=== PATIENT | female | born 1990 | race Caucasian/White ===

== ENCOUNTER 2017-11-05 11:18 | Emergency (ER) | payer OTHER ==
[2017-11-05 11:39] VITALS: BMI 23.6
[2017-11-05] MEDS ORDERED: SODIUM CHLORIDE 0.9% 1000 ML INFUS.BAG IV ONE (11:58)
[2017-11-05] MEDS ORDERED: ONDANSETRON 4 MG/2 ML VIAL IVPUSH ONE ×2 (11:58→12:50)
[2017-11-05] MEDS ORDERED: ONDANSETRON 4 MG/2 ML VIAL ONE ×2 (12:02→12:08)
[2017-11-05 12:16] LABS: BASO % 0.3 % (0-2.0); EOS % 0.2 % (0-4.5); HEMATOCRIT 39.1 % (32.4-45.2); HEMOGLOBIN 13.5 GM/dL (10.7-15.3); LYMPH % 8.8 % (8-40); MCH 33.3 pg (25.7-33.7); MCHC 34.7 g/dl (32.0-36.0); MEAN CELL VOLUME 95.9 fl (80-96); MONO % 2.6 % (3.8-10.2); NEUT % 88.1 % (42.8-82.8); PLATELET COUNT 244 K/MM3 (134-434); RBC 4.07 M/mm3 (3.60-5.2); RDW 12.9 % (11.6-15.6); WHITE BLOOD COUNT 10.2 K/mm3 (4.0-10.0)
--- NOTE | 2017-11-05 12:43 | PDOC ---
History of Present Illness - General Chief Complaint: Nausea/Vomiting Stated Complaint: VOMITING/DIZZINES Time Seen by Provider: 11/05/17 12:00 - History of Present Illness Initial Comments: 11/05/17 12:35 27 yo F w a hx of cholecystectomy is here with Nausea, vomiting and 2 syncopal episodes. She was sitting in the waiting rom and syncopized. She reports being fully well yesterday when she went to sleep. She then woke up at 2 in the morning and started vomiting multiple times. The vomitus was NBNB. She says she was lightheaded and her heart started racing before she passed out. She was sitting down while she passed out and did not fall down. Food she ate over the past 24 hours: Steak with mushroom sauce, mojito, ham and cheese sandwch, 2 ensures and 2 coffees. Her friend was with her yesterday and ate the same food but has no symptoms. She denies any recent fevers, chills, or infections. She has been spotting blood for the past month. She has a remote history of bacterial vaginosis. Past History - Past Medical History Allergies/Adverse Reactions: Allergies Allergy/AdvReac Type Severity Reaction Status Date / Time No Known Allergies Allergy Verified 11/05/17 11:34 Home Medications: Ambulatory Orders Ondansetron HCl [Zofran] 4 mg PO DAILY #20 tablet 11/05/17 COPD: No - Surgical History Cholecystectomy: Yes - Immunization History Immunization Up to Date: Yes - Suicide/Smoking/Psychosocial Hx Smoking History: Never smoked Number of Cigarettes Smoked Daily: 1 Information on smoking cessation initiated: No Hx Alcohol Use: No Drug/Substance Use Hx: Yes (marijuana) Substance Use Type: Marijuana Review of Systems - Review of Systems Comments:: 11/05/17 14:31 CONSTITUTIONAL: Positive: malaise, loss of appetite Absent: fever, chills, diaphoresis, generalized weakness, HEENT: Absent: rhinorrhea, nasal congestion, throat pain, throat swelling, difficulty swallowing, mouth swelling, ear pain, eye pain, visual Changes CARDIOVASCULAR: Positive: Lightheadedness, syncope Absent: chest pain palpitations, irregular heart rate, peripheral edema RESPIRATORY: Absent: cough, shortness of breath, dyspnea with exertion, orthopnea, wheezing, stridor, hemoptysis GASTROINTESTINAL: Positive: nausea, vomiting, Absent: abdominal pain, abdominal distension, diarrhea, constipation, melena, hematochezia GENITOURINARY: Positive: Hematuria Absent: dysuria, frequency, urgency, hesitancy, flank pain, genital pain MUSCULOSKELETAL: Absent: myalgia, arthralgia, joint swelling SKIN: Absent: rash, itching, pallor HEMATOLOGIC/IMMUNOLOGIC: Absent: easy bleeding, easy bruising, lymphadenopathy, frequent infections ENDOCRINE: Absent: unexplained weight gain, unexplained weight loss, heat intolerance, cold intolerance NEUROLOGIC: Absent: headache, focal weakness or paresthesias, dizziness, unsteady gait, seizure, mental status changes, bladder or bowel incontinence PSYCHIATRIC: Absent: anxiety, depression, suicidal or homicidal ideation, hallucinations. *Physical Exam - Vital Signs Last Vital Signs Temp Pulse Resp BP Pulse Ox 98.2 F 106 H 16 141/85 100 11/05/17 11:34 11/05/17 11:34 11/05/17 11:34 11/05/17 11:34 11/05/17 11:34 - Physical Exam Comments: 11/05/17 14:33 GENERAL: Well developed, well nourished. Awake and alert. No acute distress. HEENT: Dry mucous membranes Normocephalic, atraumatic. PERRLA, EOMI. No conjunctival pallor. Sclera are non- icteric. Oropharynx is clear. NECK: Supple. Full ROM. No JVD. No thyromegaly. No lymphadenopathy. CARDIOVASCULAR: Regular rate and rhythm. No murmurs, rubs, or gallops. Distal pulses are 2+ and symmetric. PULMONARY: No evidence of respiratory distress. Lungs clear to auscultation bilaterally. No wheezing, rales or rhonchi. ABDOMINAL: There is RUQ TTP. Otherwise the abdomen is soft. Non-tender. Non-distended. No rebound or guarding. No organomegaly. Normoactive bowel sounds. MUSCULOSKELETAL +L sided CVA tenderness. Normal range of motion at all joints. No bony deformities or tenderness. EXTREMITIES: No cyanosis. No clubbing. No edema. No calf tenderness. SKIN: Warm and dry. Normal capillary refill. No rashes. No jaundice. NEUROLOGICAL: Alert, awake, appropriate. Cranial nerves 2-12 grossly intact. Normal speech. Gait is normal without ataxia. PSYCHIATRIC: Cooperative. Good eye contact. Appropriate mood and affect. ED Treatment Course - LABORATORY CBC & Chemistry Diagram: 11/05/17 12:05 11/05/17 12:05 - ADDITIONAL ORDERS Additional order review: 11/05/17 12:05 RBC 4.07 MCV 95.9 MCHC 34.7 RDW 12.9 MPV 9.0 Neutrophils % 88.1 H Lymphocytes % 8.8 Monocytes % 2.6 L Eosinophils % 0.2 Basophils % 0.3 - RADIOLOGY Radiology Studies Ordered: Category Date Time Status ABDOMEN US -LIMITED [US] Stat Ultrasound 11/05/17 12:25 Ordered KIDNEY / RENAL US [US] Stat Ultrasound 11/05/17 12:25 Ordered - Medications Given in the ED: ED Medications Discontinued Medications Generic Name Dose Route Start Last Admin Trade Name Freq PRN Reason Stop Dose Admin Ondansetron HCl 4 mg 11/05/17 11:58 11/05/17 12:07 Zofran Injection IVPUSH 11/05/17 11:59 4 mg ONCE ONE Administration Sodium Chloride 2,000 ml 11/05/17 11:58 11/05/17 12:06 Normal Saline - IV 11/05/17 11:59 2,000 ml ONCE ONE Administration Medical Decision Making - Medical Decision Making 11/05/17 12:40 27 yo F w a hx of cholecystectomy here after Nausea, vomiting and syncopal episodes. +L CVA tenderness +RUQ pain + Hematuria for past month DD: food poisening, gastroenteritis, pancreatitis, vasovagal syncope, arrhythmia , gallbladder disease, uti/pylo, kidney stone Plan: Labs, urine, ekg, fluids, US, zofran, re-assess. USm labs, urine and ekg unremarkable No evidence of lont QT, brugada, or wpw on ekg. This is likely a vasovagal syncope episode. DCing patient with advice about vasovagal syncope, Gynecological FU, and pcp referal. 11/05/17 16:01 *DC/Admit/Observation/Transfer Diagnosis at time of Disposition: Vasovagal syncope, Hematuria - Discharge Dispostion Disposition: HOME Condition at time of disposition: Stable Decision to Admit order: No - Prescriptions Prescriptions: Ondansetron HCl [Zofran] 4 mg PO DAILY #20 tablet - Referrals Referrals: Crista Ly MD [Staff Physician] - [facility] [place] [Provider Group] - Patient Instructions Printed Discharge Instructions: DI for Syncope in Adults (Fainting), Fainting, DI for Syncope in Children (Fainting) Additional Instructions: We believe your syncopal episode today was a result of vasovagal syncope. Please make sure to follow up with your primary are doctor to make sure you are getting better and you do not pass out again in the next 2 weeks. Please also schedule an appointment with a chair spring assembler to help figure out why you have been spotting for the past month. Please make sure to go warehouse picker the medication we are sending to your [facility] pharmacy. Come back to the ER if you develop really bad pain, pass out again, start to have a bad fever, or have any other concerns. Print Language: ITALIAN - Post Discharge Activity
[2017-11-05 12:53] LABS: ALBUMIN 4.5 g/dl (3.4-5.0); ANION GAP 8 (8-16); BLOOD UREA NITROGEN 11 mg/dL (7-18); CALCIUM 9.3 mg/dL (8.5-10.1); CHLORIDE 107 mmol/L (98-107); CO2 26 mmol/L (21-32); CREATININE 0.7 mg/dL (0.55-1.02); GLUCOSE,RANDOM 106 mg/dL (74-106); POTASSIUM 3.7 mmol/L (3.5-5.1); SGOT/AST 16 U/L (15-37); SGPT/ALT 32 U/L (12-78); SODIUM 141 mmol/L (136-145)
[2017-11-05 12:57] LABS: ALK PHOS 68 U/L (45-117); BILIRUBIN,TOTAL 0.3 mg/dL (0.2-1.0); TOT PROT 7.8 g/dl (6.4-8.2)
[2017-11-05 13:01] LABS: URINE APPEARANCE CLEAR; URINE BILIRUBIN NEGATIVE (<2.0 mg/dL); URINE COLOR YELLOW; URINE GLUCOSE (UA) NEGATIVE (NEGATIVE); URINE KETONE 1+ (NEGATIVE); URINE LEUK ESTERASE NEGATIVE (NEGATIVE); URINE NITRITE NEGATIVE (NEGATIVE); URINE UROBILINOGEN NEGATIVE mg/dL (0.2-1.0)
[2017-11-05 13:02] LABS: URINE PROTEIN 2+ (NEGATIVE)
[2017-11-05 13:03] LABS: EPI CELLS RARE /HPF (FEW); URINE MUCUS RARE
[2017-11-05] MEDS ORDERED: SODIUM CHLORIDE 0.9% 500 ML INFUS.BAG IV ONE (13:21)
[2017-11-05 14:24] LABS: LIPASE 55 U/L (73-393)
--- NOTE | 2017-11-05 15:40 | PDOC ---
Attending Attestation - HPI HPI: 11/05/17 15:43 The patient is a 27 year old female with a significant PMH of cholecystectomy presenting with nausea, vomiting, and 2 syncopal episodes today. Patient reports multiple episodes of nonbloody, nonbilious vomiting since 2AM this morning. Patient was sitting in the waiting room when she had the second syncopal episode. Patient denies falling during either of the syncopal episodes. Patient denies eating anything unusual yesterday and her friend ate the same thing but did not have any symptoms. She reports spotting blood for the past month. She also has a remote history of bacterial vaginosis. The patient denies chest pain, shortness of breath, headache and dizziness. Denies fever, chills, nausea, vomit, diarrhea and constipation. Denies dysuria, frequency, urgency and hematuria. Allergies: NKA Past surgical history: cholecystectomy Social history: No reported alcohol, drug, or cigarette use. - Physicial Exam PE: 11/05/17 15:43 Vitals: Triage Vital signs reviewed General Appearance: no acute distress, well nourished well developed, Head: Atraumatic, normocephalic Neck: Supple;No Nuchal rigidity Cardiac: Regular rate and rhythm, no murmurs, no rubs, no gallops, Lungs: Clear to auscultation bilateral, good air movement bilaterally, Abdomen: Soft, nondistended, normal bowel sounds, nontender to palpation Rectal: Exam deferred Extremities: Full range of motion to all extremities, no cyanosis, clubbing, or edema Skin: Warm and dry, no rashes or lesions, no petechiae Neuro: AOX3; Cranial Nerves 2-12 grossly intact, Strength intact to all extremities, Sensation intact to all extremities Psych: normal mood, normal affect <Lilian Flores - Last Filed: 11/05/17 15:43> - Resident Resident Name: Torres Ramsey - ED Attending Attestation I have performed the following: I have examined & evaluated the patient, The case was reviewed & discussed with the resident, I agree w/resident's findings & plan, Exceptions are as noted - Medical Decision Making 11/05/17 18:56 27 years old with multiple episodes of vomiting. No fever no white count 2 syncopal episodes while having intermittent epigastric discomfort. Syncopal episodes or in the context of nausea epigastric discomfort had classic prodrome of dizziness lightheadedness sweating In the ED patient received 2 L normal saline and Zofran She feels much better she is tolerating fluids her ED workup in the ED has been unremarkable. She is provided with a prescription for Zofran she was asked follow-up with her BUFFET MANAGER or primary care provider this week. Findings, need for follow-up and strict return instructions discussed with patient. 11/05/17 19:00 <Constantino Zamora - Last Filed: 11/05/17 19:01>
[2017-11-05 16:35] VITALS: BP 120/72; PULSE 62; TEMP 98.1
--- NOTE | 2017-11-06 22:11 | EKG ---
Test Reason : Blood Pressure : / mmHG Vent. Rate : 049 BPM Atrial Rate : 049 BPM P-R Int : 114 ms QRS Dur : 080 ms QT Int : 476 ms P-R-T Axes : 000 057 019 degrees QTc Int : 429 ms SINUS BRADYCARDIA OTHERWISE NORMAL ECG NO PREVIOUS ECGS AVAILABLE Confirmed by SILVESTRE FINN MD ([id number]) on 11/06/2017 10:10:50 PM Referred By: Confirmed By:SILVESTRE FINN MD
== END 2017-11-05 16:36 | disposition home or self-care (01) ==
LOC: JER 11:18
PROC: 3E033GC Introduction of Other Therapeutic Substance into Peripheral Vein, Percutaneous Approach (ICD-10-PCS; principal; 2017-11-05)
DX: R55 Syncope and collapse (principal); R31.9 Hematuria, unspecified
CPT/HCPCS: 36415; 76705-TC; 76775-TC; 76856-TC; 80053; 81003; 81015; 83690; 84443; 84702; 85025; 87086; 87186; 93005; 93010; 96374; 96376; 99283-25; J7030

== ENCOUNTER 2018-06-12 22:52 | Emergency (ER) | payer OTHER ==
[2018-06-12 22:56] VITALS: BP 112/61; PULSE 91; TEMP 97.8; BMI 21.2
--- NOTE | 2018-06-12 23:37 | PDOC ---
Attending Attestation - HPI HPI: 06/12/18 23:43 The patient is a 28 year old female, with no significant past medical history, who presents to the emergency department with, bumps to her vagina with associated dysuria. Patient notes she had similar bumps over the past few weeks. She endorses that her partner is currently at an ER and is being evaluated for herpes, prompting her arrival. She denies any abnormal vaginal discharge or abnormal vaginal bleeding. She denies recent fevers, chills, headache or dizziness. She denies recent nausea, vomit, diarrhea or constipation. She denies recent frequency, urgency or hematuria. She denies recent chest pain or shortness of breath. Allergies: NKDA Past surgical history: None reported. <Norris Jon - Last Filed: 06/12/18 23:43> - Resident Resident Name: Raghav Mcallister - ED Attending Attestation I have performed the following: I have examined & evaluated the patient, The case was reviewed & discussed with the resident, I agree w/resident's findings & plan, Exceptions are as noted - Physicial Exam PE: 06/13/18 00:55 Agree with exam as documented by resident - Medical Decision Making 06/13/18 00:56 Reports painful bump on external genitalia in context of new sexual partner with oral vesicular lesions de-roofed ulcer on exam consider herpes STI panel sent will send rx for valcyclovir <Eliceo Woo - Last Filed: 06/13/18 00:57> Attestations - Attestations 06/12/18 23:43 Documentation prepared by Norris Jon, acting as medical anthropologist for Eliceo Woo MD. <Norris Jon - Last Filed: 06/12/18 23:43>
[2018-06-12 23:51] LABS: PH,URINE 5.5 (5.0-8.0); URINE APPEARANCE CLEAR; URINE BILIRUBIN NEGATIVE (NEGATIVE); URINE COLOR YELLOW; URINE GLUCOSE (UA) NEGATIVE (NEGATIVE); URINE KETONE NEGATIVE (NEGATIVE); URINE LEUK ESTERASE NEGATIVE (NEGATIVE); URINE NITRITE NEGATIVE (NEGATIVE); URINE PROTEIN NEGATIVE (NEGATIVE); URINE UROBILINOGEN 0.2 mg/dL (0.2-1.0)
--- NOTE | 2018-06-13 00:19 | PDOC ---
History of Present Illness - General Chief Complaint: Nausea/Vomiting Stated Complaint: CHILLS/VOMITING Time Seen by Provider: 06/12/18 23:07 History Source: Patient Exam Limitations: No Limitations - History of Present Illness Initial Comments: 06/13/18 00:15 Patient is a 28F with history of cholecystectomy here today complaining of "painful bumps" around her vagina. She states that she is sexually active and has a new partner who has a sore on her mouth. Also endorses pain with urination. Denies abdominal pain, vaginal pain, changes to vaginal discharge. Denies fevers, endorses chills, denies nausea and vomiting. Past History - Past Medical History Allergies/Adverse Reactions: Allergies Allergy/AdvReac Type Severity Reaction Status Date / Time No Known Allergies Allergy Verified 06/12/18 22:56 Home Medications: Ambulatory Orders Ondansetron HCl [Zofran] 4 mg PO DAILY #20 tablet 11/05/17 Valacyclovir HCl [Valtrex -] 1,000 mg PO TID #30 tablet 06/13/18 COPD: No - Surgical History Cholecystectomy: Yes - Immunization History Immunization Up to Date: Yes - Suicide/Smoking/Psychosocial Hx Smoking History: Unknown if ever smoked Number of Cigarettes Smoked Daily: 1 Hx Alcohol Use: No Drug/Substance Use Hx: Yes (marijuana) Substance Use Type: Marijuana Review of Systems - Review of Systems Able to Perform ROS?: Yes Comments:: 06/13/18 00:16 GENERAL/CONSTITUTIONAL: No fever or chills. No weakness. HEAD, EYES, EARS, NOSE AND THROAT: No change in vision. No sore throat. CARDIOVASCULAR: No chest pain or shortness of breath RESPIRATORY: No cough, wheezing, or hemoptysis. GASTROINTESTINAL: No nausea, vomiting, diarrhea or constipation. GENITOURINARY: + dysuria, MUSCULOSKELETAL: No joint or muscle swelling or pain. No neck or back pain. SKIN: No rash NEUROLOGIC: No headache, vertigo, loss of consciousness, or change in strength/ sensation. *Physical Exam - Vital Signs Last Vital Signs Temp Pulse Resp BP Pulse Ox 97.8 F 91 H 18 112/61 98 06/12/18 22:53 06/12/18 22:53 06/12/18 22:53 06/12/18 22:53 06/12/18 22:53 - Physical Exam Comments: 06/13/18 00:17 GENERAL: Awake, alert, and fully oriented, in no acute distress PELVIC: Painful ulceration superior at 1 oclock on inner aspect of labia, no cmt , no adnexal masses or tenderness, normal discharge. HEAD: No signs of trauma, normocephalic, atraumatic EYES: PERRLA, EOMI, sclera anicteric, conjunctiva clear ENT: Auricles normal inspection, hearing grossly normal, nares patent, oropharynx clear without exudates. Moist mucosa NECK: Normal ROM, supple, no lymphadenopathy, JVD, or masses LUNGS: No distress, speaks full sentences, clear to auscultation bilaterally HEART: Regular rate and rhythm, normal S1 and S2, no murmurs, rubs or gallops, peripheral pulses normal and equal bilaterally. ABDOMEN: Soft, nontender, normoactive bowel sounds. No guarding, no rebound. No masses EXTREMITIES: Normal inspection, Normal range of motion, no edema. No clubbing or cyanosis. NEUROLOGICAL: Cranial nerves II through XII grossly intact. Normal speech, normal gait, no focal sensorimotor deficits SKIN: Warm, Dry, normal turgor, no rashes or lesions noted. ED Treatment Course - ADDITIONAL ORDERS Additional order review: Laboratory Results 06/12/18 23:40 Urine Color Yellow Urine Appearance Clear Urine pH 5.5 D Ur Specific [place] 1.020 Urine Protein Negative Urine Glucose (UA) Negative Urine Ketones Negative Urine Blood Negative Urine Nitrite Negative Urine Bilirubin Negative Urine Urobilinogen 0.2 Ur Leukocyte Esterase Negative Medical Decision Making - Medical Decision Making 06/13/18 00:18 Patient is 28F here today with new onset herpes. Vitals normal and stable. Asking for STI screening, sent G/C, RPR, HIV. UA clear. Urine negative. Pending HIV. Valacyclovir sent to pharmacy. 06/13/18 00:20 HIV negative. *DC/Admit/Observation/Transfer Diagnosis at time of Disposition: Herpes - Discharge Dispostion Disposition: HOME Condition at time of disposition: Good Decision to Admit order: No - Prescriptions Prescriptions: Valacyclovir HCl [Valtrex -] 1,000 mg PO TID #30 tablet - Referrals Referrals: Brown Cardenas MD [Staff Physician] - - Patient Instructions Printed Discharge Instructions: DI for Genital Herpes Additional Instructions: Please follow up with an OBGYN physician. If you do not have one, one is listed below. Please return if you have any new, worsening or concerning symptoms, especially increasing pain and discharge. - Post Discharge Activity
== END 2018-06-13 00:24 | disposition home or self-care (01) ==
LOC: JER 22:52
DX: A60.04 Herpesviral vulvovaginitis (principal)
CPT/HCPCS: 36415; 81003; 84703; 86593; 87086; 87389; 87491; 87591; 99282-25

== ENCOUNTER 2018-07-21 10:57 | Emergency (ER) | payer OTHER ==
[2018-07-21 11:06] VITALS: BMI 20.3
[2018-07-21] MEDS ORDERED: SODIUM CHLORIDE 1,000 ML IV STA ×2 (11:16→14:04)
[2018-07-21] MEDS ORDERED: ONDANSETRON 4 MG/2 ML VIAL IVPUSH ONE (11:16)
[2018-07-21] MEDS ORDERED: ONDANSETRON 4 MG/2 ML VIAL ONE (11:36)
[2018-07-21 11:53] LABS: BASO % 0.3 % (0-2.0); EOS % 0.4 % (0-4.5); HEMATOCRIT 37.8 % (32.4-45.2); HEMOGLOBIN 12.6 GM/dL (10.7-15.3); LYMPH % 8.6 % (8-40); MCH 32.8 pg (25.7-33.7); MCHC 33.4 g/dl (32.0-36.0); MEAN CELL VOLUME 98.1 fl (80-96); MEAN PLT VOLUME 9.2 fl (7.5-11.1); MONO % 3.8 % (3.8-10.2); NEUT % 86.9 % (42.8-82.8); PLATELET COUNT 240 K/MM3 (134-434); RBC 3.85 M/mm3 (3.60-5.2); RDW 13.5 % (11.6-15.6); WHITE BLOOD COUNT 11.8 K/mm3 (4.0-10.0)
--- NOTE | 2018-07-21 11:55 | PDOC ---
History of Present Illness - General Chief Complaint: Nausea/Vomiting Stated Complaint: NAUSEA/VOMITING Time Seen by Provider: 07/21/18 11:15 History Source: Patient Exam Limitations: No Limitations - History of Present Illness Initial Comments: 07/21/18 12:31 28-year-old female presents the emergency room with complaints of nausea vomiting since 7 AM. Patient states went to a nearby your yesterday had lab work urine and it x-ray which were negative. Patient states was given something for the pain which she states is in her left upper flank area intermittently for the past few days. Patient denies fever, chills, chest pain, lower abdominal pain, urinary complaints, or bowel complaints. Timing/Duration: changing over time Severity: mild Associated Symptoms: reports: nausea/vomiting Past History - Travel Traveled outside of the country in the last 30 days: No Close contact w/someone who was outside of country & ill: No - Past Medical History Allergies/Adverse Reactions: Allergies Allergy/AdvReac Type Severity Reaction Status Date / Time No Known Allergies Allergy Verified 07/21/18 11:03 Home Medications: Ambulatory Orders Ondansetron HCl [Zofran] 4 mg PO DAILY #20 tablet 11/05/17 Valacyclovir HCl [Valtrex -] 1,000 mg PO TID #30 tablet 06/13/18 COPD: No - Surgical History Cholecystectomy: Yes - Immunization History Immunization Up to Date: Yes - Suicide/Smoking/Psychosocial Hx Smoking History: Current every day smoker Number of Cigarettes Smoked Daily: 10 Information on smoking cessation initiated: No Hx Alcohol Use: No Drug/Substance Use Hx: Yes (MARIJUANA) Substance Use Type: Marijuana Patient Lives Alone: No Review of Systems - Review of Systems Able to Perform ROS?: Yes Constitutional: Yes: Loss of Appetite HEENTM: No: Symptoms Reported Respiratory: No: Symptoms reported Cardiac (ROS): No: Symptoms Reported ABD/GI: Yes: Nausea, Poor Appetite, Vomiting. No: Poor Fluid Intake : Yes: Flank Pain (left) Musculoskeletal: No: Symptoms Reported Integumentary: No: Symptoms Reported Neurological: No: Symptoms reported Endocrine: No: Symptoms Reported *Physical Exam - Vital Signs Last Vital Signs Temp Pulse Resp BP Pulse Ox 98.1 F 104 H 16 135/99 98 07/21/18 11:03 07/21/18 11:03 07/21/18 11:03 07/21/18 11:03 07/21/18 11:03 - Physical Exam General Appearance: Yes: Nourished, Appropriately Dressed, Intoxicated (noted smell of marijuana and appears groggy). No: Apparent Distress HEENT: positive: EOMI, DAISY, TMs Normal Neck: positive: Supple Respiratory/Chest: positive: Lungs Clear, Normal Breath Sounds. negative: Chest Tender, Respiratory Distress, Accessory Muscle Use Cardiovascular: positive: Regular Rhythm, Tachycardia. negative: Murmur Gastrointestinal/Abdominal: positive: Normal Bowel Sounds, Soft. negative: Distended, Guarding, Tenderness Musculoskeletal: negative: CVA Tenderness Extremity: positive: Normal Capillary Refill. negative: Pedal Edema Integumentary: positive: Normal Color, Warm, Moist. negative: Rash Neurologic: positive: Motor Strength 5/5 (ambulatory) ED Treatment Course - LABORATORY CBC & Chemistry Diagram: 07/21/18 11:44 07/21/18 11:44 - Medications Given in the ED: ED Medications Discontinued Medications Generic Name Dose Route Start Last Admin Trade Name Panfiloq PRN Reason Stop Dose Admin Ondansetron HCl 4 mg 07/21/18 11:16 07/21/18 11:36 Zofran Injection IVPUSH 07/21/18 11:17 4 mg ONCE ONE Administration Medical Decision Making - Medical Decision Making 07/21/18 12:25 Chief complaint: Vomiting since 7 AM with left flank area pain intermittently without aggravating or alleviating factors Exam: Patient with nonreproducible abdominal pain. Slightly tachycardic appears groggy with a smell of marijuana noted Plan: Spoke to physician at [facility] and states had normal lab work including chest x-ray and d-dimer. He states for pain patient was sent home with Timyn I will order labs, urine drug toxicology IV fluids and antiemetics 07/21/18 14:04 Laboratory Tests 07/21/18 13:00 Urine Ketones 4+ H Urine Blood 1+ H Urine Nitrite Negative Urine Bilirubin Negative Ur Leukocyte Esterase Trace Urine WBC (Auto) 10 Urine Casts (Auto) 14 U Epithel Cells (Auto) 17.5 Urine Bacteria (Auto) 235.3 Urine HCG, Qual Negative Pt w/ cont nausea. reglan and 1 ltr of ivf ordered 07/21/18 15:32 Laboratory Tests 07/21/18 07/21/18 07/21/18 11:44 11:44 12:00 WBC 11.8 H Hgb 12.6 Hct 37.8 MCV 98.1 H Absolute Neuts (auto) 10.3 H Neutrophils % 86.9 H Sodium 139 Potassium 4.3 Chloride 108 H Carbon Dioxide 28 Anion Gap 3 L BUN 14 Creatinine 0.6 Creat Clearance w eGFR 119.04 POC Glucometer 99 Random Glucose 111 H Calcium 9.6 Magnesium 2.4 Total Bilirubin 0.4 AST 26 ALT 28 Alkaline Phosphatase 66 Total Protein 7.2 Albumin 4.2 Lipase 60 L Urine Ketones Urine Blood Urine Nitrite Urine Bilirubin Ur Leukocyte Esterase Urine WBC (Auto) Urine RBC (Auto) Urine HCG, Qual 07/21/18 13:00 WBC Hgb Hct MCV Absolute Neuts (auto) Neutrophils % Sodium Potassium Chloride Carbon Dioxide Anion Gap BUN Creatinine Creat Clearance w eGFR POC Glucometer Random Glucose Calcium Magnesium Total Bilirubin AST ALT Alkaline Phosphatase Total Protein Albumin Lipase Urine Ketones 4+ H Urine Blood 1+ H Urine Nitrite Negative Urine Bilirubin Negative Ur Leukocyte Esterase Trace Urine WBC (Auto) 10 Urine RBC (Auto) 6.5 Urine HCG, Qual Negative Patient ordered for second liter fluid. Patient will give another specimen for urine culture. Patient states feeling much better and will be discharged home with Reglan. Patient tolerated giovani crackers and ice chips *DC/Admit/Observation/Transfer Diagnosis at time of Disposition: Nausea & vomiting - Discharge Dispostion Disposition: HOME Condition at time of disposition: Improved - Referrals - Patient Instructions Printed Discharge Instructions: DI for Vomiting -- Adult, Ada Diet Additional Instructions: Follow-up bland diet for the next 48 hours and then advance as tolerated. Take Reglan as needed for nausea. - Post Discharge Activity
[2018-07-21 12:26] LABS: ALBUMIN 4.2 g/dl (3.4-5.0); ALK PHOS 66 U/L (45-117); ANION GAP 3 MMOL/L (8-16); BILIRUBIN,TOTAL 0.4 mg/dL (0.2-1); BLOOD UREA NITROGEN 14 mg/dL (7-18); CALCIUM 9.6 mg/dL (8.5-10.1); CHLORIDE 108 mmol/L (98-107); CO2 28 mmol/L (21-32); CREATININE 0.6 mg/dL (0.55-1.3); GLUCOSE,RANDOM 111 mg/dL (74-106); LIPASE 60 U/L (73-393); MAGNESIUM 2.4 mg/dL (1.8-2.4); POTASSIUM 4.3 mmol/L (3.5-5.1); SGOT/AST 26 U/L (15-37); SGPT/ALT 28 U/L (13-61); SODIUM 139 mmol/L (136-145); TOT PROT 7.2 g/dl (6.4-8.2)
[2018-07-21] MEDS ORDERED: METOCLOPRAMIDE HCL INJECTION 10 MG/2 ML VIAL IVPB ONE (13:23)
[2018-07-21] MEDS ORDERED: KETOROLAC TROMETHAMINE 30 MG/1 ML VIAL IVPUSH ONE (13:24)
[2018-07-21] MEDS ORDERED: METOCLOPRAMIDE HCL INJECTION 10 MG/2 ML VIAL ONE (13:39)
[2018-07-21] MEDS ORDERED: KETOROLAC TROMETHAMINE 30 MG/1 ML VIAL ONE (13:39)
[2018-07-21 13:41] LABS: HCG,QUALITATIVE URINE Negative
[2018-07-21 13:42] LABS: EPI CELLS 17.5 /HPF (0-5/HPF); URINE APPEARANCE CLOUDY; URINE BACTERIA 235.3 /hpf (NEGATIVE); URINE BILIRUBIN NEGATIVE (NEGATIVE); URINE CASTS 14 /lpf (0-8); URINE COLOR YELLOW; URINE GLUCOSE (UA) NEGATIVE (NEGATIVE); URINE KETONE 4+ (NEGATIVE); URINE LEUK ESTERASE TRACE (NEGATIVE); URINE NITRITE NEGATIVE (NEGATIVE); URINE PROTEIN NEGATIVE (NEGATIVE); URINE UROBILINOGEN 0.2 mg/dL (0.2-1.0); URINE WBC 10 /hpf (0-5)
[2018-07-21 14:31] VITALS: BP 130/79; PULSE 89; TEMP 98.7
[2018-07-21 15:17] LABS: URINE RBC 6.5 /hpf (0-4)
== END 2018-07-21 15:41 | disposition home or self-care (01) ==
LOC: JER 10:57
PROC: 3E0337Z Introduction of Electrolytic and Water Balance Substance into Peripheral Vein, Percutaneous Approach (ICD-10-PCS; principal; 2018-07-21)
PROC: 3E033GC Introduction of Other Therapeutic Substance into Peripheral Vein, Percutaneous Approach (ICD-10-PCS; 2018-07-21)
PROC: 3E033GC Introduction of Other Therapeutic Substance into Peripheral Vein, Percutaneous Approach (ICD-10-PCS; 2018-07-21)
PROC: 3E0333Z Introduction of Anti-inflammatory into Peripheral Vein, Percutaneous Approach (ICD-10-PCS; 2018-07-21)
DX: R11.2 Nausea with vomiting, unspecified (principal)
CPT/HCPCS: 36415; 80053; 81003; 82962; 83690; 83735; 84703; 85025; 96361; 96374; 96375; 99283-25; J7030